=== PATIENT | male | born 1960 | race Two or more races ===

== ENCOUNTER 2024-02-13 17:02 | Emergency (ER) | payer MEDICAID, OTHER ==
[~2024-02-13] VITALS: Ht 165.1 cm; Wt 105.7 kg
[2024-02-13 17:58] LABS: Urine Bacteria None Seen /hpf (None Seen)
--- NOTE | 2024-02-13 18:09 | ED.PDOC ---
History of Present Illness HPI Comments 63Y M with PMHx asthma, head surgery, and cholecystectomy presents to ED for chief complaint rt flank pain x1day. Pt describes pain as constant and non- radiating. Pt denies fever, n/v/d, dysuria, and hematuria. Pt has never experienced this pain before. Pt took 2 Ibuprofen pills at 1500 today with no relief. Allergies include ASA. Chief Complaint: Back Pain Time Seen by MD: 17:36 Primary Care Provider: NONE Reviewed Notes: Medications, Allergies Allergies: Coded Allergies: UNOBTAINABLE (Unverified , 02/13/24) Information Source: Patient, Relative Mode of Arrival: Wheelchair Severity: Mild Timing: Days Duration: Since onset Past Medical History PAST MEDICAL HISTORY: Asthma Surgical History: Cholecystectomy Family History Family History: Unknown Social History Smoker: Non-Smoker Alcohol: Denies ETOH Use Drugs: Denies Drug Use Lives In: Home Constitutional: denies: chills, diaphoresis, fatigue, fever, malaise, sweats, weakness, others EENTM: denies: blurred vision, double vision, ear bleeding, ear discharge, ear drainage, ear pain, ear ringing, eye pain, eye redness, hearing loss, mouth pain, mouth swelling, nasal discharge, nose bleeding, nose congestion, nose pain, photophobia, tearing, throat pain, throat swelling, voice changes, others Respiratory: denies: cough, hemoptysis, orthopnea, SOB at rest, shortness of breath, SOB with excertion, stridor, wheezing, others Cardiovascular: denies: chest pain, dizzy spells, diaphoresis, Dyspnea on exer tion, edema, irregular heart beat, left arm pain, lightheadedness, palpitations, PND, syncope, others Gastrointestinal: reports: abdominal pain; denies: abdomen distended, blood streaked bowels, constipated, diarrhea, dysphagia, difficulty swallowing, hematemesis, melena, nausea, poor appetite, poor fluid intake, rectal bleeding, rectal pain, vomiting, others Genitourinary: reports: flank pain; denies: burning, dysuria, frequency, hematuria, incontinence, penile discharge, penile sore, pain, testicle pain, testicle swelling, urgency, others Neurological: denies: dizziness, fainting, headache, left sided numbness, left sided weakness, numbness, paresthesia, pre-existing deficit, right sided numbness, right sided weakness, seizure, speech problems, tingling, tremors, weakness, others Musculoskeletal: denies: back pain, gout, joint pain, joint swelling, muscle pain, muscle stiffness, neck pain, others Integumetry: denies: bruises, change in color, change in hair/nails, dryness, laceration, lesions, lumps, rash, wounds, others Allergic/Immunocompromised: denies: Difficulty Healing, Frequent Infections, Hives, Itching, others Hematologic/Lymphatic: denies: anemia, blood clots, easy bleeding, easy b ruising, swollen glands, others Endocrine: denies: excessive hunger, excessive sweating, excessive thirst, excessive urination, flushing, intolerance to cold, intolerance to heat, unexplained weight gain, unexplained weight loss, others Psychiatric: denies: anxiety, bipolar disorder, depression, hopeless, panic disorder, schizophrenia, sleepless, suicidal, others All Other Systems: Reviewed and Negative Physical Exam General Appearance: No Apparent Distress, Obese HEENT: Normal ENT Inspection Neck: Full Range of Motion, Normal Inspection Respiratory: Lungs Clear, No Accessory Muscle Use, No Respiratory Distress, Normal Breath Sounds Cardiovascular: No Edema, No JVD, Regular Rate/Rhythm Breast Exam: Deferred Gastrointestinal: Soft, Other (No abdominal tenderness. Right low back and flank tenderness to palpation. No CVA tenderness.) Genitalia: Deferred Pelvic: Deferred Rectal: Deferred Extremities: Normal inspection, Normal range of motion, Non-tender, No pedal edema Neurologic: Alert, No Motor Deficits, Normal Affect, Normal Mood, No Sensory Deficits Cerebellar Function: NOT DONE Reflexes: NOT DONE Skin: Dry, Normal Color, Warm Lymphatic: NOT DONE Was a procedure done? Was a procedure done?: No Differential Dx Considerations may include: Musculoskeletal pain, UTI, kidney stone, neuropathic pain, among others X-Ray, Labs, Meds, VS Vital Signs Date Time Temp Pulse Resp B/P (MAP) Pulse Ox O2 Delivery O2 Flow Rate FiO2 02/13/24 18:55 98.1 64 17 132/78 (96) 96 98.1 02/13/24 18:55 64 17 94 Room Air 02/13/24 17:22 97.2 65 18 142/87 (105) 95 Lab Test 02/13/24 18:32 02/13/24 00:00 Range/Units White Blood Count 8.0 4.4-10.8 10^3/uL Red Blood Count 4.79 4.5-5.90 10^6/uL Hemoglobin 15.8 13.5-17.5 g/dL Hematocrit 46.8 41.0-53.0 % Mean Corpuscular Volume 97.7 80.0-100.0 fL Mean Corpuscular Hemoglobin 32.9 H 28.0-32.0 pg Mean Corpuscular Hemoglobin Concent 33.7 32.0-36.0 g/dL Red Cell Distribution Width 14.0 11.8-14.3 % Platelet Count 270 140-450 10^3/uL Mean Platelet Volume 7.8 6.9-10.8 fL Neutrophils (%) (Auto) 56.5 37.0-80.0 % Lymphocytes (%) (Auto) 29.2 10.0-50.0 % Monocytes (%) (Auto) 12.3 H 0.0-12.0 % Eosinophils (%) (Auto) 0.6 0.0-7.0 % Basophils (%) (Auto) 1.4 0.0-2.0 % Neutrophils # (Auto) 4.5 1.6-8.6 10 ^3/uL Lymphocytes # (Auto) 2.3 0.4-5.4 10 ^3/uL Monocytes # (Auto) 1.0 0-1.3 10 ^3/uL Eosinophils # (Auto) 0 0-0.8 10 ^3/uL Basophils # (Auto) 0.1 0-0.2 10 ^3/uL Nucleated Red Blood Cells 0.0 % Sodium Level 138 136-145 mmol/L Potassium Level 3.7 3.5-5.1 mmol/L Chloride Level 105 98-107 mmol/L Carbon Dioxide Level 25 20-31 mmol/L Anion Gap 8 5-15 Blood Urea Nitrogen 13 9-23 mg/dL Creatinine 0.84 0.700-1.30 mg/dL Glomerular Filtration Rate Calc 98 >90 mL/min BUN/Creatinine Ratio 15.5 10.0-20.0 Serum Glucose 108 H 74-106 mg/dL Calcium Level 9.9 8.7-10.4 mg/dL Urine Color Yellow Yellow Urine Clarity Clear Clear Urine pH 5.5 5.0-9.0 Urine Specific Donie 1.025 1.001-1.035 Urine Protein Trace H Negative Urine Ketones Negative Negative Urine Blood Negative Negative /uL Urine Nitrite Negative Negative Urine Bilirubin Negative Negative Urine Urobilinogen Normal Negative mg/dL Urine Leukocyte Esterase Negative Negative /uL Urine RBC 1 0 - 3 /hpf Urine WBC 2 0 - 3 /hpf Urine Squamous Epithelial Cells None seen <5 /hpf Urine Bacteria None seen None Seen /hpf Urine Mucus Few None Seen Urine Glucose Normal Normal mg/dL Current Medications Medications (Trade) Dose Ordered Sig/Bryan Route Start Time Stop Time Status Last Admin Ketorolac Tromethamine (Toradol Injection) 60 mg ONCE ONCE IM 02/13/24 18:30 02/13/24 18:31 DC 02/13/24 18:51 Acetaminophen/ Hydrocodone Bitart ([place] 5/325MG Tab) 1 tab ONCE ONCE PO 02/13/24 18:30 02/13/24 18:31 DC 02/13/24 18:51 PROCEDURE(s): ABPL - CT AB PEL WO CON-NO ORAL OR IV REASON: R flank pain ORDER NUMBER(s): [id number], ACCESSION NUMBER(s): [id number] Exam: CT CT AB PEL WO CON-NO ORAL OR IV History: R flank pain Comparison Study: None available at time of dictation. TECHNIQUE: Multidetector CT of the abdomen was performed from lung bases to pubic symphysis. Imaging was performed without IV contrast. Axial, coronal and sagittal multiplanar reformats were obtained from the axial data set by the technologist. Radiation Dose Information: CT Dose: CTDI volume is 22.49 mGy. Dose-length product is 1293.86 mGy*cm FINDINGS: Evaluation of solid organs is limited due to lack of intravenous contrast use. Findings: Lung Bases: No acute or significant lung base finding. Normal heart size. No pleural or pericardial effusion. Liver: The liver is normal in size. No focal lesions. Gallbladder and Biliary Tree: Gallbladder appears to have been surgically removed. Spleen: Unremarkable Pancreas: The pancreas is grossly normal in appearance. Adrenal Glands: Unremarkable Kidneys: Kidneys are grossly normal without calculi or hydronephrosis. Bladder: Questionable 2-3 mm calculus near the right ureterovesical junction Bowel: The stomach is grossly normal in appearance. Small bowel and colon are normal in caliber and distribution. The appendix is not visualized; however, no secondary findings of acute appendicitis identified. Ascites: Absent Lymphadenopathy: No mesenteric, retroperitoneal or periportal lymphadenopathy. Abdominal Wall and Mesentery: 3.5 cm fat containing left inguinal hernia. Vasculature: The visualized abdominal aorta is normal in size and caliber. Evaluation of abdominal and pelvic vessels is limited due to lack of intravenous contrast. Pelvic Organs: Unremarkable Musculoskeletal: No aggressive focal bony lesions, acute fractures or dislocation. Soft tissues: Unremarkable IMPRESSION: 1. Gallbladder has been surgically removed. 2. No findings of bowel obstruction. 3. Questionable distal right ureteral calculus measuring 2-3 mm. No significant hydronephrosis of the right kidney Radiation optimization: All CT scans at this facility use at least one of these dose optimization techniques: automated exposure control mA and/or kV adjustment per patient size (includes targeted exams where dose is matched to clinical indication) or iterative reconstruction. X-Ray, Labs, Meds, VS Comment 63Y M with PMHx asthma, head surgery, and cholecystectomy complaining of right low back and flank pain Vitals remarkable for temperature 97.2, blood pressure 142/87 Exam remarkable for right low back and lower flank tenderness to palpation CT abdomen and pelvis: IMPRESSION: 1. Gallbladder has been surgically removed. 2. No findings of bowel obstruction. 3. Questionable distal right ureteral calculus measuring 2-3 mm. No significant hydronephrosis of the right kidney CBC, basic metabolic panel and UA unremarkable for any abnormality of acute significance Patient treated with the following in the ED: Toradol 60 mg IM, [place] 5/325 mg p.o. On re-evaluation, patient stated pain had improved, vitals were stable. Hospitalization was considered, however the patient had rapid improvement of his symptoms with treatment in the ED, and I no longer feel hospitalization is necessary. Patient appears stable for outpatient treatment and close follow-up with his primary physician Rx ibuprofen 800 mg, Tylenol extra-strength, Flomax Time of 1ST Reevaluation: 18:06 Reevaluation 1ST: Unchanged Time of 2ND Reevaluation: 21:13 Reevaluation 2ND: Improved Patient Education/Counseling: Diagnosis, Treatment Family Education/Counseling: Diagnosis, Treatment Departure 1 Departure Time of Disposition: 21:13 Impression: Primary Impression: Ureterolithiasis Disposition: 01 HOME / SELF CARE / HOMELESS Condition: Stable Additional Instructions: Your blood and urine tests were unremarkable. Your CT scan showed a kidney stone that is passing on the right side. It is small enough to pass on its own. I have prescribed pain medication, and medication to help the stone pass faster. Follow-up with your primary doctor in 1-2 days for re-evaluation. Return to ER for persistent or worsening symptoms. e-Prescriptions Tamsulosin Hcl (Flomax) 0.4 Mg Cap 1 CAP PO DAILY, #30 CAP 11 Refills Take 30 min after same meal daily. Discontinue after pain has resolved. Prov: REYNALDO HOLLAND MD 02/13/24 Acetaminophen (Tylenol Extra Strength) 500 Mg Tab 1000 MG PO Q6HP PRN, #60 TAB prn pain Prov: REYNALDO HOLLAND MD 02/13/24 Ibuprofen (Ibuprofen) 800 Mg Tab 800 MG PO Q8HP PRN, #30 TAB prn pain, take with food Prov: REYNALDO HOLLAND MD 02/13/24 Discharged With: Relative Critical Care Note Critical Care Time?: No Stability Stability form required: No Heart Score Heart Score: Heart Score Response (Comments) Value History N/A 0 EKG N/A 0 Age N/A 0 Risk Factors N/A 0 Troponin N/A 0 Total 0 I personally scribed for REYNALDO HOLLAND MD (ONI) on 02/13/24 at 18:09. Electronically submitted by Arely Quinones ([employer]). I personally scribed for REYNLADO HOLLAND MD) on 02/13/24 at 19:16. Electronically submitted by Arely Quinones ([employer]). REYNALDO HOLLAND MD Feb 13, 2024 18:09
[2024-02-13 18:14] LABS: Urine Blood Negative /uL (Negative); Urine Clarity Clear (Clear); Urine Color Yellow (Yellow); Urine Mucus FEW (None Seen); Urine Protein, UAD TRACE (Negative); Urine Specific Gravity 1.025 (1.001-1.035); Urine Urobilinogen Normal (Negative); Urine WBC 2 /hpf (0 - 3); Urine pH 5.5 (5.0-9.0)
[2024-02-13] MEDS: KETOROLAC TROMETH 60MG/2ML VIAL IM ONE (18:51)
[2024-02-13] MEDS: HYDROcodone-ACET 5/325MG TAB PO ONE (18:51)
[2024-02-13 18:55] VITALS: BP 132/78; PULSE 64; RESP 17; TEMP 98.1; O2SAT 94
[2024-02-13 18:58] LABS: Basophils # (auto) 0.1 10 ^3/uL (0-0.2); Basophils % (auto) 1.4 % (0.0-2.0); Eosinophils # (auto) 0 10 ^3/uL (0-0.8); Eosinophils % (auto) 0.6 % (0.0-7.0); Hematocrit 46.8 % (41.0-53.0); Hemoglobin 15.8 g/dL (13.5-17.5); Lymphocytes # (auto) 2.3 10 ^3/uL (0.4-5.4); Lymphocytes % (auto) 29.2 % (10.0-50.0); Mean Corpuscular Hemoglobin 32.9 pg (28.0-32.0); Mean Corpuscular Hgb Conc. 33.7 g/dL (32.0-36.0); Mean Corpuscular Volume 97.7 fL (80.0-100.0); Monocytes % (auto) 12.3 % (0.0-12.0); Neutrophils # (auto) 4.5 10 ^3/uL (1.6-8.6); Neutrophils % (auto) 56.5 % (37.0-80.0); Platelet Count (auto) 270 10^3/uL (140-450); Red Blood Cells 4.79 10^6/uL (4.5-5.90)
--- NOTE | 2024-02-13 19:09 | DVH ---
Exam: CT CT AB PEL WO CON-NO ORAL OR IV History: R flank pain Comparison Study: None available at time of dictation. TECHNIQUE: Multidetector CT of the abdomen was performed from lung bases to pubic symphysis. Imaging was performed without IV contrast. Axial, coronal and sagittal multiplanar reformats were obtained fr om the axial data set by the technologist. Radiation Dose Information: CT Dose: CTDI volume is 22.49 mGy. Dose-length product is 1293.86 mGy*cm FINDINGS: Evaluation of solid organs is limited due to lack of intravenous contrast use. Findings: Lung Bases: No acute or significant lung base finding. Normal heart size. No pleural or pericardial effusion. Liver: The liver is normal in size. No focal lesions. Gallbladder and Biliary Tree: Gallbladder appears to have been surgically removed. Spleen: Unremarkable Pancreas: The pancreas is grossly normal in appearance. Adrenal Glands: Unremarkable Kidneys: Kidneys are grossly normal without calculi or hydronephrosis. Bladder: Questionable 2-3 mm calculus near the right ureterovesical junction Bowel: The stomach is grossly normal in appearance. Small bowel and colon are normal in caliber and d istribution. The appendix is not visualized; however, no secondary findings of acute appendicitis id entified. Ascites: Absent Lymphadenopathy: No mesenteric, retroperitoneal or periportal lymphadenopathy. Abdominal Wall and Mesentery: 3.5 cm fat containing left inguinal hernia. Vasculature: The visualized abdominal aorta is normal in size and caliber. Evaluation of abdominal a nd pelvic vessels is limited due to lack of intravenous contrast. Pelvic Organs: Unremarkable Musculoskeletal: No aggressive focal bony lesions, acute fractures or dislocation. Soft tissues: Unremarkable IMPRESSION: 1. Gallbladder has been surgically removed. 2. No findings of bowel obstruction. 3. Questionable distal right ureteral calculus measuring 2-3 mm. No significant hydronephrosis of the right kidney Radiation optimization: All CT scans at this facility use at least one of these dose optimization ml hniques: automated exposure control mA and/or kV adjustment per patient size (includes targeted exam s where dose is matched to clinical indication) or iterative reconstruction.
[2024-02-13 19:10] LABS: Chloride 105 mmol/L (98-107); Potassium 3.7 mmol/L (3.5-5.1); Sodium 138 mmol/L (136-145)
[2024-02-13 19:11] LABS: Calcium 9.9 mg/dL (8.7-10.4); Carbon Dioxide 25 mmol/L (20-31)
[2024-02-13 19:16] LABS: BUN/Creatinine Ratio 15.5 (10.0-20.0); Blood Urea Nitrogen 13 mg/dL (9-23); Glucose 108 mg/dL (74-106)
[2024-02-13 19:21] LABS: Anion Gap 8 (5-15)
[2024-02-13] MEDS ORDERED: IBUP-1456 PO (21:19)
[2024-02-13] MEDS ORDERED: ACET-1304 PO (21:19)
[2024-02-13] MEDS ORDERED: TAMS-35 PO (21:19)
== END 2024-02-13 21:35 | disposition home or self-care (01) ==
LOC: ER 17:02
DX: N20.1 Calculus of ureter (principal); J45.909 Unspecified asthma, uncomplicated; Z90.49 Acquired absence of other specified parts of digestive tract
CPT/HCPCS: 36415; 74176; 80048; 81001; 85025; 96372; 99285; J1885